=== PATIENT | female | born 1990 | race Two or more races ===

== ENCOUNTER → 2024-09-12 14:31 | Outpatient (CLI) | payer OTHER ==
[~2024-09-12 14:31] MED LIST: CIPRO500 MG PO; CODE1TAB37 PO; URIN D.S. TABLE1 TAB PO
== END | disposition home or self-care (01) ==
LOC: PRENATAL 14:31
PROVIDERS: ATTEND Obstetrics & Gynecology Maternal & Fetal Medicine
DX: O44.00 Complete placenta previa NOS or without hemorrhage, unspecified trimester (principal); Z3A.20 20 weeks gestation of pregnancy

== ENCOUNTER 2024-11-13 14:35 | Outpatient (CLI) | payer OTHER | END 2024-11-13 14:36 | disposition home or self-care (01) | LOC: PRENATAL 14:35 | PROVIDERS: ATTEND Obstetrics & Gynecology Maternal & Fetal Medicine | DX: O26.849 Uterine size-date discrepancy, unspecified trimester (principal); O44.00 Complete placenta previa NOS or without hemorrhage, unspecified trimester; O99.891 Other specified diseases and conditions complicating pregnancy; O36.1999 Maternal care for other isoimmunization, unspecified trimester, other fetus; O09.519 Supervision of elderly primigravida, unspecified trimester; O99.019 Anemia complicating pregnancy, unspecified trimester; Z3A.28 28 weeks gestation of pregnancy ==

== ENCOUNTER 2024-12-23 08:54 | Outpatient (CLI) | payer OTHER | END 2024-12-23 08:58 | disposition home or self-care (01) | LOC: PRENATAL 08:54 | PROVIDERS: ATTEND Obstetrics & Gynecology Maternal & Fetal Medicine | DX: O26.849 Uterine size-date discrepancy, unspecified trimester (principal); O36.8199 Decreased fetal movements, unspecified trimester, other fetus; O44.00 Complete placenta previa NOS or without hemorrhage, unspecified trimester; O36.1999 Maternal care for other isoimmunization, unspecified trimester, other fetus; O09.519 Supervision of elderly primigravida, unspecified trimester; Z3A.34 34 weeks gestation of pregnancy ==